=== PATIENT | male | born 1970 | race American Indian/Alaskan Native ===

== ENCOUNTER 2018-01-14 20:42 | Emergency (ER) | payer OTHER, BC ==
[2018-01-14] MEDS ORDERED: ULTRAM ONE (23:17)
[2018-01-14] MEDS ORDERED: ULTRAM PO ONE (23:24)
[2018-01-14] MEDS ORDERED: NORVASC PO ONE (23:24)
[2018-01-14 23:29] VITALS: BP 163/116
== END 2018-01-15 00:20 | disposition left against medical advice (07) ==
LOC: ED 20:42
DX: R52 Pain, unspecified (principal); I10 Essential (primary) hypertension; V89.2XXA Person injured in unspecified motor-vehicle accident, traffic, initial encounter; Y93.89 Activity, other specified; Y99.8 Other external cause status; Y92.488 Other paved roadways as the place of occurrence of the external cause; Z53.21 Procedure and treatment not carried out due to patient leaving prior to being seen by health care provider